=== PATIENT | female | born 1965 | race Caucasian/White ===

== ENCOUNTER 2016-07-10 11:52 | Emergency (ER) | payer MEDICARE, MEDICAID ==
--- NOTE | 2016-07-10 13:38 | UC ---
Complaint Female HPI - HPI Summary HPI Summary: [facility]. she is complaining of dysuria, increased frequency and strong smelling urine. denies fever. - History Of Current Complaint Chief Complaint: UCGU Stated Complaint: URINARY COMPLAINT Time Seen by Provider: 07/10/16 13:06 Hx Obtained From: Patient Hx Last Menstrual Period: n/a ?: No Onset/Duration: Sudden Onset, Lasting Days Timing: Constant Severity Initially: Mild Severity Currently: Moderate Pain Intensity: 5 Pain Scale Used: 0-10 Numeric Character: Burning Aggravating Factor(s): Urination Alleviating Factor(s): Nothing - Risk Factors Ectopic Risk Factor: Negative Ovarian Torsion Risk Factor: Negative - Allergies/Home Medications Allergies/Adverse Reactions: Allergies Allergy/AdvReac Type Severity Reaction Status Date / Time No Known Allergies Allergy Verified 07/10/16 13:24 PMH/Surg Hx/FS Hx/Imm Hx Previously Healthy: Yes Endocrine History Of: Denies: Diabetes Cardiovascular History Of: Denies: Cardiac Disorders Respiratory History Of: Reports: COPD - Surgical History Surgical History: Yes Surgery Procedure, Year, and Place: Removal Trach polyp,Lazer Excision Cricoid mass, Surgical clousure trach stoma, B/L cataract removal. - Family History Known Family History: Positive: Unknown - COGNITIVE DELAY, CAN NOT CONTRIBUTE TO FAMILY HISTORY - Social History Alcohol Use: None Substance Use Type: None Smoking Status (MU): Never Smoked Tobacco - Immunization History Most Recent Influenza Vaccination: 04/14/15 Most Recent Tetanus Shot: 08/13/10 Most Recent Pneumonia Vaccination: 10/06/14 Review of Systems Constitutional: Fatigue Skin: Negative Eyes: Negative ENT: Negative Respiratory: Negative Cardiovascular: Negative Gastrointestinal: Negative Genitourinary: Dysuria, Hematuria, Frequency Motor: Negative Neurovascular: Negative Musculoskeletal: Negative Neurological: Negative Psychological: Negative All Other Systems Reviewed And Are Negative: Yes Physical Exam Triage Information Reviewed: Yes Appearance: No Pain Distress, Well-Nourished, Ill-Appearing Vital Signs: Initial Vital Signs Temp 99 F 07/10/16 13:13 Pulse 68 07/10/16 13:13 Resp 22 07/10/16 13:13 BP 142/77 07/10/16 13:13 Vital Signs Reviewed: Yes Eye Exam: Normal Eyes: Positive: Conjunctiva Clear ENT Exam: Normal ENT: Positive: Normal ENT inspection, Pharynx normal, TMs normal Dental Exam: Normal Neck exam: Normal Neck: Positive: Supple, Nontender, No Lymphadenopathy Respiratory Exam: Normal Respiratory: Positive: Chest non-tender, Lungs clear, Normal breath sounds Cardiovascular Exam: Normal Cardiovascular: Positive: RRR, No Murmur, Pulses Normal Abdominal Exam: Normal Abdomen Description: Positive: Nontender, No Organomegaly, Soft Bowel Sounds: Positive: Present Musculoskeletal Exam: Normal Musculoskeletal: Positive: Strength Intact, ROM Intact, No Edema Neurological Exam: Normal Neurological: Positive: Alert, Muscle Tone Normal Psychological Exam: Normal Skin Exam: Normal Complaint Female Dx - Course Course Of Treatment: history obtained, medications reviewed, exam completed, UA positive for leuks and blood, treated for UTI. - Differential Dx/Diagnosis Differential Diagnosis/HQI/PQRI: Ureteral Stone, Urinary Tract Infection Provider Diagnoses: UTI. hematuria Discharge - Discharge Plan Condition: Stable Disposition: HOME Patient Education Materials: Urinary Tract Infection in Women (ED) Additional Instructions: see consultation report for instructions
[2016-07-10 13:43] VITALS: BP 142/77
== END 2016-07-10 13:50 | disposition home or self-care (01) ==
LOC: UCCORT 11:52
DX: N39.0 Urinary tract infection, site not specified (principal); R31.9 Hematuria, unspecified
CPT/HCPCS: 87086; 99212; G0463

== ENCOUNTER 2017-05-28 21:19 | Emergency (ER) | payer MEDICARE, MEDICAID ==
[2017-05-28 21:29] VITALS: BP 116/62
--- NOTE | 2017-05-28 21:52 | UC ---
HPI Febrile Illness - History of Current Complaint Chief Complaint: UCGeneralIllness Time Seen by Provider: 05/28/17 21:32 Hx Obtained From: Patient, Family/Pre Fabricator Hx Last Menstrual Period: n/a Onset/Duration: Started Days Ago - 1 Initial Severity: Mild Current Severity: Mild Aggravating Factors: Nothing Alleviating Factors: Nothing Associated Signs and Symptoms: Negative - Allergy/Home Medications Allergies/Adverse Reactions: Allergies Allergy/AdvReac Type Severity Reaction Status Date / Time No Known Allergies Allergy Verified 05/28/17 21:28 PMH/Surg Hx/FS Hx/Imm Hx Respiratory History: COPD 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 - Family History Known Family History: Positive: None, Unknown - COGNITIVE DELAY, CAN NOT CONTRIBUTE TO FAMILY HISTORY - Social History Occupation: Disabled Lives: [employer] Alcohol Use: None Substance Use Type: None Smoking Status (MU): Never Smoked Tobacco Have You Smoked in the Last Year: No - Immunization History Most Recent Influenza Vaccination: 04/14/15 Most Recent Tetanus Shot: 08/13/10 Most Recent Pneumonia Vaccination: 10/06/14 Review of Systems Constitutional: Fever Is Patient Immunocompromised?: No All Other Systems Reviewed And Are Negative: Yes Physical Exam Triage Information Reviewed: Yes Appearance: Well-Appearing, No Pain Distress, Well-Nourished Vital Signs: Initial Vital Signs Temp 99.3 F 05/28/17 21:22 Pulse 72 05/28/17 21:22 Resp 28 05/28/17 21:22 BP 116/62 05/28/17 21:22 Pulse Ox 100 05/28/17 21:22 Vital Signs Reviewed: Yes Eyes: Positive: Conjunctiva Clear ENT: Positive: Pharynx normal, TMs normal Neck exam: Normal Respiratory Exam: Normal Cardiovascular Exam: Normal Abdomen Description: Positive: Nontender, Soft Musculoskeletal: Positive: Strength Limited @ - is in a wheelchair Neurological Exam: Normal Psychological Exam: Normal Skin Exam: Normal Course/Dx - Febrile Illness Differential Diagnoses: Cellulitis, Fever of Unknown Origin, Pyelonephritis, Viremia - Diagnoses Clinic Provider Diagnoses: Fever without source Discharge - Discharge Plan Condition: Stable Disposition: HOME Patient Education Materials: Fever in Adults (ED) Referrals: Gege Vang MD [Primary Care Provider] -
== END 2017-05-28 22:04 | disposition home or self-care (01) ==
LOC: UCCORT 21:19
DX: R50.9 Fever, unspecified (principal); J44.9 Chronic obstructive pulmonary disease, unspecified; F70 Mild intellectual disabilities
CPT/HCPCS: 81003; 87086; 99212; G0463

== ENCOUNTER 2017-06-02 14:19 | Emergency (ER) | payer MEDICARE, MEDICAID ==
[2017-06-02 14:54] VITALS: BP 119/66
--- NOTE | 2017-06-02 15:20 | UC ---
Respiratory Complaint HPI - HPI Summary HPI Summary: 52 yo female with Hx COPD on home O2 presents with cough and rattly chest She had MR and resides at a nursing home - History of Current Complaint Chief Complaint: UCRespiratory Stated Complaint: RESPITORY Time Seen by Provider: 06/02/17 14:43 Hx Obtained From: Patient, Family/Manager Money Hx Last Menstrual Period: n/a Onset/Duration: Gradual Onset, Lasting Days Timing: Constant Severity Initially: Mild Severity Currently: Mild Pain Intensity: 0 Pain Scale Used: 0-10 Numeric Character: Cough: Productive - at times - Allergies/Home Medications Allergies/Adverse Reactions: Allergies Allergy/AdvReac Type Severity Reaction Status Date / Time No Known Allergies Allergy Verified 06/02/17 14:53 PMH/Surg Hx/FS Hx/Imm Hx Previously Healthy: Yes Respiratory History: COPD, Pneumonia GI/ History: Gastroesophageal Reflux - Surgical History Surgical History: Yes Surgery Procedure, Year, and Place: Removal Trach polyp,Lazer Excision Cricoid mass, Surgical closure trach stoma, B/L cataract removal. - Family History Known Family History: Positive: None, Unknown - COGNITIVE DELAY, CAN NOT CONTRIBUTE TO FAMILY HISTORY - Social History Alcohol Use: None Substance Use Type: None Smoking Status (MU): Never Smoked Tobacco Have You Smoked in the Last Year: No - Immunization History Most Recent Influenza Vaccination: 04/14/15 Most Recent Tetanus Shot: 08/13/10 Most Recent Pneumonia Vaccination: 10/06/14 Review of Systems Constitutional: Negative Skin: Negative Eyes: Negative ENT: Negative Respiratory: Cough Cardiovascular: Negative Gastrointestinal: Negative Genitourinary: Negative Motor: Negative Neurovascular: Negative Musculoskeletal: Negative Neurological: Negative Psychological: Negative Is Patient Immunocompromised?: No All Other Systems Reviewed And Are Negative: Yes Physical Exam Triage Information Reviewed: Yes Appearance: Well-Appearing Vital Signs: Initial Vital Signs Temp 98.5 F 06/02/17 14:49 Pulse 70 06/02/17 14:49 Resp 20 06/02/17 14:49 BP 119/66 06/02/17 14:49 Pulse Ox 100 06/02/17 14:49 Vital Signs Reviewed: Yes Eyes: Positive: Conjunctiva Clear ENT: Positive: Hearing grossly normal. Negative: Nasal congestion, Nasal drainage, Muffled voice, Hoarse voice Neck: Positive: Supple, Nontender, No Lymphadenopathy Respiratory: Positive: No respiratory distress, No accessory muscle use, Crackles - right base/pt has severe kyphoscoliosis Cardiovascular: Positive: No Murmur, Pulses Normal Bowel Sounds: Positive: Present Musculoskeletal: Positive: ROM Intact, No Edema Neurological: Positive: Alert Psychological Exam: Normal Skin Exam: Normal UC Diagnostic Evaluation - Laboratory O2 Sat by Pulse Oximetry: 100 - normal/not hypoxic - Radiology Xray Interpretation: No Acute Changes Radiology Interpretation Completed By: Radiologist Respiratory Course/Dx - Differential Dx/Diagnosis Provider Diagnoses: acute btonchitis Discharge - Discharge Plan Condition: Stable Disposition: HOME Prescriptions: Amoxicillin PO (*) [Amoxicillin 875 MG (*)] 875 mg PO BID #14 tab Patient Education Materials: Acute Bronchitis (ED) Referrals: Gege Vang MD [Primary Care Provider] - 4 Days
--- NOTE | 2017-06-02 15:45 | RAD ---
HISTORY: COPD, cough COMPARISONS: June 17, 2014 VIEWS: 4: Frontal dual-energy and lateral views of the chest. FINDINGS: Evaluation is limited by body habitus. CARDIOMEDIASTINAL SILHOUETTE: The cardiomediastinal silhouette is normal. ALFREDO: The alfredo are normal. PLEURA: The costophrenic angles are sharp. No pleural abnormalities are noted. LUNG PARENCHYMA: Evaluation limited by the thoracic deformity. Within the limitations of the study, the lungs are clear. ABDOMEN: The upper abdomen is clear. There is no subphrenic gas. BONES AND SOFT TISSUES: There is a scoliotic curvature of the spine with associated deformity of the thorax. OTHER: None. IMPRESSION: 1. LIMITED STUDY. 2. SCOLIOSIS. 3. WITHIN THE LIMITATIONS OF THE STUDY, THE LUNGS ARE CLEAR
== END 2017-06-02 16:03 | disposition home or self-care (01) ==
LOC: UCCORT 14:19
DX: J20.9 Acute bronchitis, unspecified (principal); J44.9 Chronic obstructive pulmonary disease, unspecified; K21.9 Gastro-esophageal reflux disease without esophagitis; M41.9 Scoliosis, unspecified
CPT/HCPCS: 71020; 99212; G0463

== ENCOUNTER 2017-06-11 11:27 | Emergency (ER) | payer MEDICARE, MEDICAID ==
--- NOTE | 2017-06-11 13:06 | UC ---
Respiratory Complaint HPI - HPI Summary HPI Summary: c/o cough low sat this am - wears 02 2 liters via n[place]. just finishing amoxicillin abx - sob this am with nonprod cough present. denies fever/chills had neb treatment at 10:30 this am. COPD hx. - History of Current Complaint Chief Complaint: UCGeneralIllness Stated Complaint: LOW GRADE FEVER,SOB Time Seen by Provider: 06/11/17 12:49 Hx Obtained From: Patient, Family/[employer] Consultant Hx Last Menstrual Period: n/a ?: No Onset/Duration: Sudden Onset Timing: Constant Severity Initially: Moderate Severity Currently: Moderate Character: Cough: Nonproductive Associated Signs And Symptoms: Positive: Dyspnea, Wheezing, Nasal Congestion - Risk Factors Pulmonary Embolism Risk Factors: Negative - Allergies/Home Medications Allergies/Adverse Reactions: Allergies Allergy/AdvReac Type Severity Reaction Status Date / Time No Known Allergies Allergy Verified 06/02/17 14:53 Home Medications: Home Medications Albuterol HFA INHALER* [Ventolin HFA Inhaler*] 1 puff BID 06/11/17 [History Confirmed 06/11/17] Fluticasone HFA 110 mcg(NF) [Flovent HFA 110 mcg(NF)] 2 puff BID 06/11/17 [ History Confirmed 06/11/17] Oxygen SEE INSTRUCTIONS 06/11/17 [History] PMH/Surg Hx/FS Hx/Imm Hx Previously Healthy: No - COPD 02 dependent Respiratory History: COPD, Bronchitis, Pneumonia - Surgical History Surgical History: Yes Surgery Procedure, Year, and Place: Removal Trach polyp,Lazer Excision Cricoid mass, Surgical closure trach stoma, B/L cataract removal. - Family History Known Family History: Positive: None, Unknown - COGNITIVE DELAY, CAN NOT CONTRIBUTE TO FAMILY HISTORY - Social History Alcohol Use: None Substance Use Type: None Smoking Status (MU): Never Smoked Tobacco Have You Smoked in the Last Year: No - Immunization History Most Recent Influenza Vaccination: 2017 Most Recent Tetanus Shot: 08/13/10 Most Recent Pneumonia Vaccination: 10/06/14 Review of Systems Constitutional: Negative Skin: Negative Eyes: Negative ENT: Nasal Discharge, Sinus Congestion Respiratory: Shortness Of Breath, Cough Cardiovascular: Negative Gastrointestinal: Negative Genitourinary: Negative Musculoskeletal: Arthralgia Neurological: Negative Psychological: Negative Is Patient Immunocompromised?: Yes - COPD All Other Systems Reviewed And Are Negative: Yes Physical Exam Triage Information Reviewed: Yes Appearance: Ill-Appearing Vital Signs: Initial Vital Signs Temp 99 F 06/11/17 11:43 Pulse 78 06/11/17 11:43 Resp 24 06/11/17 11:43 BP 146/78 06/11/17 11:43 Pulse Ox 99 06/11/17 11:43 Vital Signs Reviewed: Yes Eye Exam: Normal ENT Exam: Normal Neck: Positive: Supple Respiratory Exam: Normal Respiratory: Positive: Chest non-tender, Lungs clear, Normal breath sounds, No respiratory distress, No accessory muscle use Cardiovascular Exam: Normal Psychological Exam: Normal Skin Exam: Normal UC Diagnostic Evaluation - Laboratory O2 Sat by Pulse Oximetry: 99 Respiratory Course/Dx - Course Course Of Treatment: chest xray now - results show an opacity of her lung - no infiltrate present explained this to pt and caregiver. 02 2 liters via [place] continue. duoneb every 4 hours prn sob/wheezing - continue. f/u pcp in [address] of chest - pt/caregiver with understanding - Differential Dx/Diagnosis Differential Diagnosis/HQI/PQRI: Exacerbation Of COPD Provider Diagnoses: COPD exacerbation Discharge - Discharge Plan Condition: Good Disposition: HOME Patient Education Materials: Chronic Bronchitis (ED), Dyspnea (ED) Referrals: Gege Vang MD [Primary Care Provider] - 3 Days
--- NOTE | 2017-06-11 13:27 | RAD ---
HISTORY: Pneumonia COMPARISONS: June 17, 2014 VIEWS: 5: Frontal dual-energy and lateral views of the chest. Evaluation is limited secondary to body habitus FINDINGS: CARDIOMEDIASTINAL SILHOUETTE: The cardiomediastinal silhouette is stable. ALFREDO: The alfredo are grossly normal. PLEURA: The costophrenic angles are sharp. No pleural abnormalities are noted. LUNG PARENCHYMA: There is patchy linear opacification of the right lung base. ABDOMEN: There is large amount of stool within the colon. BONES AND SOFT TISSUES: There is a scoliotic curvature of the spine. OTHER: None. IMPRESSION: 1. LIMITED STUDY. 2. PATCHY AIRSPACE DISEASE OF THE RIGHT LOWER LUNG. RECOMMEND FOLLOW-UP UNTIL RESOLUTION TO EXCLUDE UNDERLYING PULMONARY PARENCHYMAL PATHOLOGY.
[2017-06-11 13:43] VITALS: BP 126/70
== END 2017-06-11 13:54 | disposition home or self-care (01) ==
LOC: UCCORT 11:27
DX: J44.1 Chronic obstructive pulmonary disease with (acute) exacerbation (principal)
CPT/HCPCS: 71020; 99212; G0463